=== PATIENT | female | born 1975 | race Caucasian/White ===

== ENCOUNTER 2023-06-30 11:33 | Emergency (ER) | payer OTHER, SELFPAY ==
[2023-06-30 11:47] VITALS: BP 149/88; PULSE 69; RESP 16; TEMP 37.4; O2SAT 99
--- NOTE | 2023-06-30 11:49 | ED.WOUNDLAC ---
HPI - Wound/Laceration General Chief Complaint: Wound/Laceration Stated Complaint: cut finger at work Source: patient Mode of arrival: ambulatory Limitations: no limitations History of Present Illness HPI narrative: 48-year-old female presented for complaint of laceration to the tip of the left little finger after injury while work today. She states she was using a new knife when it slipped and cut into the tip of the finger. She rinsed the finger with cold water and applied bandage but the site continued to sleep through them. She is unsure of last tetanus. Denies numbness, tingling, weakness, or decreased ROM to the finger. Related Data Home Medications Medication Instructions Recorded Confirmed cyanocobalamin (vitamin B-12) 1,000 mcg IM MONTHLY 06/30/23 06/30/23 1,000 mcg/mL injection solution diclofenac sodium 75 mg 75 mg PO BID PRN migraines 06/30/23 06/30/23 tablet,delayed release duloxetine 60 mg capsule,delayed 60 mg PO DAILY 06/30/23 06/30/23 release sumatriptan succinate 100 mg tablet 100 mg PO DAILY PRN migraines 06/30/23 06/30/23 Allergies Allergy/AdvReac Type Severity Reaction Status Date / Time codeine AdvReac Mild Headache Verified 06/30/23 11:54 Review of Systems Review of Systems: CONSTITUTIONAL: Denies body aches, fever, chills, or sweats. EYES: Denies visual changes, redness, or discharge. ENT: Denies rhinorrhea, congestion CARDIOVASCULAR: Denies chest pain, palpitations, or edema. RESPIRATORY: Denies cough or dyspnea. GASTROINTESTINAL: Denies abdominal pain, nausea, vomiting, or diarrhea. SKIN: reports lac to left 5th digit MUSCULOSKELETAL: Denies back pain, joint pain, or myalgia. NEUROLOGIC: Denies headache, numbness, tingling, or weakness. [facility] Past Medical History Medical History (Updated 06/30/23 @ 12:00 by Laila Ruth APRN) B12 deficiency Migraine Comments At time of signature, I have reviewed and agree with nursing past medical, surgical, social and family history unless otherwise noted. Please see nursing chart for further information. There is no relevant family history pertinent to the presenting complaint Exam Narrative: GENERAL: Well-appearing HEAD: Normocephalic, atraumatic. EYES: conjunctivae clear, and EOMI. ENT: Mucous membranes moist. Oropharynx without edema, erythema or lesions. NECK: Supple. No lymphadenopathy CHEST: Clear to auscultation. HEART: Regular rate and rhythm. SKIN: Warm, dry. approx <0.5cm puncture/flap to distal phalanx of left 5th digit, no active bleeding. Full ROM to finger, no swelling. NEURO: Alert and oriented x3. Course Course Emergency Course: Patient is aware of diagnosis, understands and agrees to treatment plan. Anticipatory guidance given. Patient agrees to follow-up as directed and is aware of reasons to seek care at the emergency department. Portions of this record may have been created with voice recognition software Level of Care: Express Care Visit Vital Signs Vital signs: Vital Signs Temperature 99.3 F 06/30/23 11:47 Pulse Rate 69 06/30/23 11:47 Respiratory Rate 16 06/30/23 11:47 Blood Pressure 149/88 H 06/30/23 11:47 Pulse Oximetry 99 06/30/23 11:47 Oxygen Delivery Room Air 06/30/23 11:47 Temperature 99.3 F 06/30/23 11:47 Pulse Rate 69 06/30/23 11:47 Respiratory Rate 16 06/30/23 11:47 Blood Pressure 149/88 H 06/30/23 11:47 Pulse Oximetry 99 06/30/23 11:47 Oxygen Delivery Room Air 06/30/23 11:47 Reviewed Procedures Laceration Laceration 1: Date: 06/30/23 Site: hand (5th digit) Side (If applicable): left Size (cm): 0.5 Description: flap and clean Depth: simple, single layer Pre-repair: wound explored and irrigated (cleansed with wound spray and soaked in sterile water) ====== Skin Level ====== Skin layer closed with: dermabond ====== Subcutaneous Layer ====== ===
[2023-06-30] MEDS: TETANUS,DIPHTHERIA,AC PERTUSSIS ADULT (0.5 ML) BOOSTRIX IM (12:08)
== END 2023-06-30 12:14 | disposition home or self-care (01) ==
PROVIDERS: Emergency Provider Nurse Practitioner Family; PCP Family Medicine
DX: S61.217A Laceration without foreign body of left little finger without damage to nail, initial encounter (principal); W26.0XXA Contact with knife, initial encounter; Z23 Encounter for immunization; E53.8 Deficiency of other specified B group vitamins
CPT/HCPCS: 12001; 90471; 90715; 99212; G0463